=== PATIENT | male | born 1975 | race Caucasian/White ===

== ENCOUNTER 2016-10-18 20:26 | Emergency (ER) | payer OTHER ==
[2016-10-18] MEDS ORDERED: HYDROcod/ACETAM 5/325 MG TABLET PO STA (20:49)
[2016-10-18] MEDS ORDERED: HYDROcod/ACETAM 5/325 MG TABLET ONE (20:57)
[2016-10-18] MEDS ORDERED: HYDROcod/ACET 5/325 Prepack 6 PO STA (21:50)
[2016-10-18] MEDS ORDERED: HYDROcod/ACET 5/325 Prepack 6 PO ONE (22:08)
== END 2016-10-18 22:20 | disposition home or self-care (01) ==
DX: S82.042A Displaced comminuted fracture of left patella, initial encounter for closed fracture (principal); S40.812A Abrasion of left upper arm, initial encounter; W10.9XXA Fall (on) (from) unspecified stairs and steps, initial encounter; Y92.009 Unspecified place in unspecified non-institutional (private) residence as the place of occurrence of the external cause; I10 Essential (primary) hypertension
CPT/HCPCS: 29505; 73564; 99283; 99284; A9270

== ENCOUNTER 2016-10-24 09:51 | Day surgery (SDC) | payer OTHER ==
[~2016-10-24 09:51] MED LIST: ceFAZolin 2 GM/50 ML 50 ML IV ONE
[2016-10-24] MEDS ORDERED: LACTATED RINGERS 1,000 ML IV ONE ×2 (10:04→13:28)
[2016-10-24] MEDS ORDERED: BUPIVACAINE 0.25%-EPI 1:200000 PF 30 ML VIAL SUBQ ONE ×2 (12:26)
[2016-10-24] MEDS ORDERED: TRANEXAMIC ACID 1,000 MG/10 ML VIAL IV ONE (13:15)
[2016-10-24] MEDS ORDERED: LIDOCAINE-MPF 2% 5 ML VIAL IM ONE (13:15)
[2016-10-24] MEDS ORDERED: DEXAMETHASONE 4 MG/ML VIAL IVP ONE (13:15)
[2016-10-24] MEDS ORDERED: KETOROLAC 30 MG/ML VIAL IVP ONE (13:15)
[2016-10-24] MEDS ORDERED: ROPIVACAINE 0.5% PF 20 ML AMPULE SUBQ ONE (13:15)
[2016-10-24] MEDS ORDERED: MIDAZOLAM 2 MG/2 ML VIAL IVP ONE (13:15)
[2016-10-24] MEDS ORDERED: PROPOFOL 200 MG/20 ML VIAL IVP ONE (13:15)
[2016-10-24] MEDS ORDERED: fentaNYL 100 MCG/2 ML VIAL IVP ONE (13:15)
[2016-10-24] MEDS ORDERED: ONDANSETRON 4 MG/2 ML VIAL IVP ONE (13:15)
[2016-10-24] MEDS: HYDROmorphone 1 MG/ML SYRINGE ONE ×4 (14:19→14:35)
[2016-10-24] MEDS ORDERED: HYDROmorphone 1 MG/ML SYRINGE ONE (14:28)
[2016-10-24] MEDS ORDERED: oxyCOD/ACETAMIN 5 MG/325 MG TABLET PO ONE (15:00)
[2016-10-24] MEDS ORDERED: HYDROcod/ACETAM 10 MG/325 MG TABLET ONE (15:07)
[2016-10-24] MEDS ORDERED: DEXAMETHASONE 10 MG/ML VIAL IVP ONE (16:01)
[2016-10-24] MEDS ORDERED: ROPIVACAINE 0.2% PF 20 ML AMPULE SUBQ ONE (16:01)
[2016-10-24] MEDS ORDERED: EPINEPHrine 1 MG/ML AMP IVP ONE (16:01)
[2018-10-24] MEDS ORDERED: ROPIVACAINE 0.5% PF 20 ML AMPULE EP ONE (13:15)
[2018-10-24] MEDS ORDERED: LIDOCAINE-MPF 2% 5 ML VIAL IM ONE (13:15)
[2018-10-24] MEDS ORDERED: MIDAZOLAM 2 MG/2 ML VIAL IVP ONE (13:15)
[2018-10-24] MEDS ORDERED: KETOROLAC 30 MG/ML VIAL IVP ONE (13:15)
[2018-10-24] MEDS ORDERED: PROPOFOL 200 MG/20 ML VIAL IVP ONE (13:15)
[2018-10-24] MEDS ORDERED: ONDANSETRON 4 MG/2 ML VIAL IVP ONE (13:15)
[2018-10-24] MEDS ORDERED: fentaNYL 100 MCG/2 ML VIAL IVP ONE (13:15)
[2018-10-24] MEDS ORDERED: DEXAMETHASONE 4 MG/ML VIAL IVP ONE (13:15)
[2018-10-24] MEDS ORDERED: TRANEXAMIC ACID 1,000 MG/10 ML VIAL IV ONE (13:15)
== END 2016-10-24 09:52 | disposition home or self-care (01) ==
PROC: 0LQR0ZZ Repair Left Knee Tendon, Open Approach (ICD-10-PCS; principal; 2016-10-24 10:55)
DX: S76.112A Strain of left quadriceps muscle, fascia and tendon, initial encounter (principal); W10.9XXA Fall (on) (from) unspecified stairs and steps, initial encounter; Y92.008 Other place in unspecified non-institutional (private) residence as the place of occurrence of the external cause; I10 Essential (primary) hypertension; E11.9 Type 2 diabetes mellitus without complications; F90.9 Attention-deficit hyperactivity disorder, unspecified type; F32.9 Major depressive disorder, single episode, unspecified
CPT/HCPCS: 27380; 80048; 85025; A9270; J0690; J1170; J7120

== ENCOUNTER 2018-11-13 12:09 | Emergency (ER) | payer OTHER ==
--- NOTE | 2018-11-13 13:06 | ED Physician Documentation ---
History of Present Illness - Stated complaint Stated Complaint: LT FT PX - Chief complaint Chief Complaint: Ext Problem - History obtained from History obtained from: Patient - History of Present Illness Timing: How many days ago (5) - Additonal information Additional information: 43-year-old patient reports that his dog stepped on his foot and about 5 days ago he began to have some pain in the left little toe with some redness and swelling. He is got some drainage out of it periodically he is coming today with persistence of pain and redness and swelling. Review of Systems Constitutional: denies: Fever Eyes: denies: Decreased vision Nose: denies: Congestion Respiratory: denies: Cough GI: denies: Vomiting Skin: reports: Lesions. denies: Rash Musculoskeletal: reports: Extremity pain. denies: Neck pain, Back pain PD PAST MEDICAL HISTORY - Past Medical History Cardiovascular: Hypertension Respiratory: None Endocrine/Autoimmune: None GI: None : None HEENT: None Psych: Depression Musculoskeletal: None Derm: None - Past Surgical History Past Surgical History: Yes Ortho: Other - Present Medications Home Medications: Ambulatory Orders Medication Instructions Recorded Confirmed Dextroamphetamine/Amphetamine 20 mg PO BID 10/18/16 11/13/18 [Adderall 30 mg Tablet] Lisinopril [Zestril] 40 mg PO DAILY 10/18/16 11/13/18 Sertraline [Zoloft] 50 mg PO DAILY 10/18/16 11/13/18 amLODIPine [Norvasc] 10 mg PO DAILY 10/18/16 11/13/18 buPROPion [Wellbutrin Sr] 300 mg PO DAILY 10/18/16 11/13/18 Sulfamethoxazole/Trimethoprim 1 each PO BID #14 tablet 11/13/18 [Sulfamethoxazole-Tmp Ds Tablet] metFORMIN [Glucophage] 500 mg PO BIDWM 11/13/18 11/13/18 - Allergies Allergies/Adverse Reactions: Allergies Allergy/AdvReac Type Severity Reaction Status Date / Time No Known Drug Allergies Allergy Verified 11/13/18 12:34 - Social History Does the pt smoke?: No Smoking Status: Never smoker Does the pt drink ETOH?: Yes Does the pt have substance abuse?: No - Immunizations Immunizations are current?: Yes - POLST Patient has POLST: No PD ED PE NORMAL - Vitals Vital signs reviewed: Yes (hypertensive ) - General General: Alert and oriented X 3, No acute distress, Well developed/nourished - HEENT HEENT: Atraumatic, PERRL, EOMI - Neck Neck: Supple, no meningeal sign - Respiratory Respiratory: No respiratory distress - Derm Derm: Normal color, Warm and dry, No rash - Extremities Extremities: No deformity, Other (There is redness swelling and tednerness to the left 5th toe distal phlange with drainage from under the nail. This is cultured. Thers is no lymphangitic streaking. 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, No motor deficit, No sensory deficit Eye Opening: Spontaneous Motor: Obeys Commands Verbal: Oriented GCS Score: 15 - Psych Psych: Normal mood, Normal affect Results - Vitals Vitals: Vital Signs - 24 hr 11/13/18 12:16 Temperature 36.3 C L Heart Rate 79 Respiratory 14 Rate Blood Pressure 166/109 H O2 Saturation 97 Oxygen O2 Source Room air PD MEDICAL DECISION MAKING - ED course Complexity details: reviewed results, re-evaluated patient, considered differential, d/w patient ED course: 43-year-old male with an infected left fifth toe has some drainage which we are able to culture will place him on some Septra and continue the warm soaks. Departure - Departure Disposition: 01 Home, Self Care Clinical Impression: Abscess of toe, left Condition: Stable Instructions: ED Staph Infec Abx Tx Only Follow-Up: Hugh Fuentes MD [Primary Care Provider] - Prescriptions: Sulfamethoxazole/Trimethoprim [Sulfamethoxazole-Tmp Ds Tablet] 1 each PO BID #14 tablet Comments: Use a warm compress or warm soaks 2-3 times per day and encourage any drainage from the area. Expect to have improvement day by day of the redness swelling and pain. If you have worsening of the redness swelling or pain return to the emergency department.
[2018-11-13 13:20] VITALS: BP 158/99
== END 2018-11-13 13:20 | disposition home or self-care (01) ==
LOC: ED 12:09
DX: L03.032 Cellulitis of left toe (principal); W54.8XXA Other contact with dog, initial encounter; I10 Essential (primary) hypertension; Z79.899 Other long term (current) drug therapy
CPT/HCPCS: 87070; 87205; 99283

== ENCOUNTER 2019-01-24 07:43 | Outpatient (CLI) | payer OTHER ==
[2019-01-24 12:56] LABS: CREATININE,URINE 215.4 mg/dL; MICROALBUM/CREATININE RATIO,UR 29.2 ug/mg (<30.0); MICROALBUMIN,URINE 6.3 mg/dL (0-300.0)
[2019-01-24 13:08] LABS: HB2 TOTAL 16.4 g/dL; HEMOGLOBIN A1C 1.19 g/dL; HEMOGLOBIN A1C % 8.8 % (4.6-6.2)
[2019-01-24 14:10] LABS: CALCIUM 8.6 mg/dL (8.5-10.3); CREATININE 0.9 mg/dL (0.6-1.2)
== END 2019-01-24 07:44 | disposition home or self-care (01) ==
LOC: LAB.WCP 07:43
PROVIDERS: ATTEND Internal Medicine
DX: E11.40 Type 2 diabetes mellitus with diabetic neuropathy, unspecified (principal); I10 Essential (primary) hypertension
CPT/HCPCS: 36415; 80048; 82043; 82570; 83036

== ENCOUNTER 2020-03-01 18:22 | Emergency (ER) | payer OTHER ==
--- NOTE | 2020-03-01 18:47 | ED Physician Documentation ---
PD HPI LOWER EXT INJURY - Stated complaint Stated Complaint: RT FT SWELLING - Chief complaint Chief Complaint: Ext Problem - History obtained from History obtained from: Patient - Additional information Additional information: 45-year-old gentleman with relatively well-controlled diabetes, last A1c was 7.1. He has a longstanding callus actually calluses on his feet and one has opened up and developed some redness around it on the right foot. No fevers. No pain with walking. Review of Systems Constitutional: reports: Reviewed and negative Eyes: reports: Reviewed and negative Nose: reports: Reviewed and negative Throat: reports: Reviewed and negative PD PAST MEDICAL HISTORY - Past Medical History Past Medical History: Yes Cardiovascular: Hypertension Respiratory: None Neuro: Peripheral neuropathy Endocrine/Autoimmune: Type 2 diabetes GI: None : Kidney stones HEENT: None Psych: Depression Musculoskeletal: None Derm: None - Past Surgical History Past Surgical History: Yes Ortho: Other - Present Medications Home Medications: Ambulatory Orders Medication Instructions Recorded Confirmed Dextroamphetamine/Amphetamine 20 mg PO BID 10/18/16 11/13/18 [Adderall 30 mg Tablet] Lisinopril [Zestril] 40 mg PO DAILY 10/18/16 11/13/18 Sertraline [Zoloft] 50 mg PO DAILY 10/18/16 11/13/18 amLODIPine [Norvasc] 10 mg PO DAILY 10/18/16 11/13/18 buPROPion [Wellbutrin Sr] 300 mg PO DAILY 10/18/16 11/13/18 Sulfamethoxazole/Trimethoprim 1 each PO BID #14 tablet 11/13/18 [Sulfamethoxazole-Tmp Ds Tablet] metFORMIN [Glucophage] 500 mg PO BIDWM 11/13/18 11/13/18 Amox/Clav 875/125 [Augmentin] 1 each PO Q12H #20 tablet 03/01/20 - Allergies Allergies/Adverse Reactions: Allergies Allergy/AdvReac Type Severity Reaction Status Date / Time No Known Drug Allergies Allergy Verified 11/13/18 12:34 - Social History Does the pt smoke?: No Smoking Status: Never smoker Does the pt drink ETOH?: Yes Does the pt have substance abuse?: No - Immunizations Immunizations are current?: Yes - POLST Patient has POLST: No PD ED PE NORMAL - Vitals Vital signs reviewed: Yes - General General: Alert and oriented X 3, No acute distress - Extremities Extremities: Other (There is a very large broad and deep callus with some mild purulent smell and cellulitis around it under the fifth metatarsal of the right foot. Mild cellulitis up to the midfoot.) - Neuro Neuro: Alert and oriented X 3, Normal speech Results - Vitals Vitals: Vital Signs - 24 hr 03/01/20 03/01/20 18:27 19:35 Temperature 36.6 C 37.1 C Heart Rate 70 71 Respiratory 18 16 Rate Blood Pressure 174/97 H 180/114 H O2 Saturation 98 98 Oxygen O2 Source Room air - Labs Labs: Microbiology 03/01/20 18:45 Wound Culture - Preliminary Foot - Right Laboratory Tests 03/01/20 03/01/20 03/01/20 18:52 18:52 18:52 WBC 5.2 RBC 5.36 Hgb 15.2 Hct 43.5 MCV 81.2 MCH 28.4 MCHC 34.9 RDW 11.9 L Plt Count 180 MPV 10.2 Neut # (Auto) 3.3 Lymph # (Auto) 1.3 L Pratt # (Auto) 0.5 Eos # (Auto) 0.1 Baso # (Auto) 0.0 Absolute Nucleated RBC 0.00 Nucleated RBC % 0.0 ESR 4 Sodium 138 Potassium 3.5 Chloride 102 Carbon Dioxide 26 Anion Gap 10.0 BUN 23 H Creatinine 0.9 Estimated GFR (MDRD) 91 Glucose 185 H Calcium 9.3 Total Bilirubin 0.5 AST 20 ALT 27 Alkaline Phosphatase 86 C-Reactive Protein 1.3 H Total Protein 6.9 Albumin 4.2 Globulin 2.7 Albumin/Globulin Ratio 1.6 Lipase 32 - Rads (name of study) R foot XR Radiology: EMP read contemporaneously (NAD) Procedures - General procedure General procedure: The callus on the bottom of the right foot was sharply debrided and a significant wound skin was removed. Probably will need specialized gun number tools to get down to the base, but got as close as I could and a culture was taken. Departure - Departure Disposition: 01 Home, Self Care Clinical Impression: Diabetic foot infection Condition: Good Instructions: Diabetic Foot Ulcer Dc, ED Foot Care Diabetic Prescriptions: Amox/Clav 875/125 [Augmentin] 1 each PO Q12H #20 tablet Comments: Follow-up with your gun number, next available appointment. Return for new or worsening symptoms. We will culture the wound, have resistant organism is identified we will call you in 48 to 72 hours or so for potential change in antibiotics. Discharge Date/Time: 03/01/20 19:37
[2020-03-01 19:00] LABS: BASOPHILS % (AUTO) 0.4 %; EOSINOPHILS # (AUTO) 0.1 10^3/uL (0.0-0.7); EOSINOPHILS % (AUTO) 2.7 %; HGB - HEMOGLOBIN 15.2 g/dL (14.0-18.0); LYMPHOCYTES # (AUTO) 1.3 10^3/uL (1.5-3.5); LYMPHOCYTES % (AUTO) 24.9 %; MEAN CORPUSCULAR HEMOGLOBIN 28.4 pg (27.0-31.0); MEAN CORPUSCULAR HGB CONC 34.9 g/dL (32.0-36.0); MEAN CORPUSCULAR VOLUME 81.2 fL (80.0-94.0); MEAN PLATELET VOLUME 10.2 fL (7.4-11.4); MONOCYTES # (AUTO) 0.5 10^3/uL (0.0-1.0); MONOCYTES % (AUTO) 8.7 %; NEUTROPHILS # (AUTO) 3.3 10^3/uL (1.5-6.6); NEUTROPHILS % (AUTO) 63.1 %; PLT - PLATELET COUNT 180 10^3/uL (130-450); RED BLOOD COUNT 5.36 10^6/uL (4.70-6.10); RED CELL DISTRIBUTION WIDTH 11.9 % (12.0-15.0); WHITE BLOOD COUNT 5.2 x10^3/uL (4.8-10.8)
--- NOTE | 2020-03-01 19:11 | XRAY Report ---
PROCEDURE: Foot 3 View RT INDICATIONS: foot infection TECHNIQUE: 3 views of the foot were acquired. COMPARISON: None available FINDINGS: Bones: No fractures or dislocations. No suspicious bony lesions. A mild hallux valgus deformity is seen, with associated degenerative change of the first metatarsophalangeal joint. Milder degenerativ e changes are seen elsewhere. There is an accessory ossicle seen, an os tibiale externum. Incidenta l note is made of a bipartite medial sesamoid bone. Incidental note is made of an enthesophyte at th e Achilles insertion. Toe alignment abnormalities can be seen. Soft tissues: Generalized distal soft tissue swelling is seen. No radiopaque foreign bodies are seen . IMPRESSION: Soft tissue swelling is seen, without a radiopaque foreign body or bone involvement seen. If there is strong clinical concern for developing osteomyelitis in this patient with this given hist ory, then please consider a dedicated MRI (without and with contrast) for further evaluation (assumin g that there is no contraindication). Reviewed by: Byron Pinto MD on 03/01/2020 6:10 PM [facility] Approved by: Byron Pinto MD on 03/01/2020 6:10 PM [facility] Station ID: [id number]
[2020-03-01 19:15] LABS: ALBUMIN 4.2 g/dL (3.2-5.5); ALBUMIN/GLOBULIN RATIO 1.6 (1.0-2.2); BILIRUBIN,TOTAL 0.5 mg/dL (0.2-1.0); CALCIUM 9.3 mg/dL (8.5-10.3); CREATININE 0.9 mg/dL (0.6-1.2); CRP - C-REACTIVE PROTEIN 1.3 mg/dL (0-1.0); TOTAL PROTEIN 6.9 g/dL (6.7-8.2)
[2020-03-01] MEDS ORDERED: AMOX/CLAV 875 MG/125 MG TABLET PO STA (19:20)
[2020-03-01 19:36] VITALS: BP 180/114
== END 2020-03-01 19:37 | disposition home or self-care (01) ==
LOC: ED 18:22
DX: E11.69 Type 2 diabetes mellitus with other specified complication (principal); L03.115 Cellulitis of right lower limb; L84 Corns and callosities; E11.42 Type 2 diabetes mellitus with diabetic polyneuropathy; Z79.84 Long term (current) use of oral hypoglycemic drugs; M20.11 Hallux valgus (acquired), right foot; I10 Essential (primary) hypertension
CPT/HCPCS: 11055; 36415; 73630; 80053; 83690; 85025; 85651; 86140; 87070; 87077; 87181; 87205; 99283; A9270

== ENCOUNTER 2021-07-05 13:59 | Emergency (ER) | payer OTHER ==
--- NOTE | 2021-07-05 14:51 | ED Physician Documentation ---
History of Present Illness - Stated complaint Stated Complaint: GLF NECK PX - Chief complaint Chief Complaint: Trauma Hd/Nk - History obtained from History obtained from: Patient - History of Present Illness Timing: Today Pain level max: 5 Pain level now: 5 - Additonal information Additional information: 46-year-old male presents the emergency department after fall today. He states that he did strike his head but no loss of consciousness. Has neck pain. Worse with movement, better with rest. He is diabetic. Denies any numbness or tingling. No loss of bowel or bladder control. Took Motrin prior to arrival. No vomiting. Placed in a c-collar at triage Review of Systems Constitutional: denies: Fever, Chills Respiratory: denies: Cough GI: denies: Nausea, Vomiting, Diarrhea : denies: Frequency Skin: denies: Rash Musculoskeletal: denies: Neck pain, Back pain Neurologic: denies: Headache PD PAST MEDICAL HISTORY - Past Medical History Cardiovascular: Hypertension Respiratory: None Neuro: Peripheral neuropathy Endocrine/Autoimmune: Type 2 diabetes GI: None : Kidney stones HEENT: None Psych: Depression Musculoskeletal: None Derm: None - Past Surgical History Past Surgical History: Yes Ortho: Other - Present Medications Home Medications: Ambulatory Orders Medication Instructions Recorded Confirmed Dextroamphetamine/Amphetamine 20 mg PO BID 10/18/16 11/13/18 [Adderall 30 mg Tablet] Lisinopril [Zestril] 40 mg PO DAILY 10/18/16 11/13/18 Sertraline [Zoloft] 50 mg PO DAILY 10/18/16 11/13/18 amLODIPine [Norvasc] 10 mg PO DAILY 10/18/16 11/13/18 buPROPion [Wellbutrin Sr] 300 mg PO DAILY 10/18/16 11/13/18 Sulfamethoxazole/Trimethoprim 1 each PO BID #14 tablet 11/13/18 [Sulfamethoxazole-Tmp Ds Tablet] metFORMIN [Glucophage] 500 mg PO BIDWM 11/13/18 11/13/18 Amox/Clav 875/125 [Augmentin] 1 each PO Q12H #20 tablet 03/01/20 Meloxicam [Mobic] 15 mg PO DAILY PRN #20 tablet 07/05/21 methocarbamoL [Robaxin] 500 mg PO Q6H PRN #20 tablet 07/05/21 - Allergies Allergies/Adverse Reactions: Allergies Allergy/AdvReac Type Severity Reaction Status Date / Time No Known Drug Allergies Allergy Verified 07/05/21 14:03 - Social History Does the pt smoke?: No Smoking Status: Never smoker Does the pt drink ETOH?: Yes Does the pt have substance abuse?: No - Immunizations Immunizations are current?: Yes - POLST Patient has POLST: No PD ED PE NORMAL - Vitals Vital signs reviewed: Yes - General General: Alert and oriented X 3, No acute distress, Well developed/nourished - HEENT HEENT: Atraumatic, PERRL, Ears normal, Moist mucous membranes - Neck Neck: Supple, no meningeal sign, Other (Tender palpation mid cervical spine. No step-off or deformity.) - Cardiac Cardiac: RRR - Respiratory Respiratory: No respiratory distress, Clear bilaterally - Abdomen Abdomen: Soft, Non tender, Non distended - Back Back: No spinal TTP - Derm Derm: Warm and dry - Extremities Extremities: No deformity, Normal ROM s pain - Neuro Neuro: Alert and oriented X 3, fireman 2-12 intact, No motor deficit, No sensory deficit, Normal speech - Psych Psych: Normal mood, Normal affect Results - Vitals Vitals: Vital Signs - 24 hr 07/05/21 07/05/21 14:03 16:03 Temperature 36.5 C 37.0 C Heart Rate 80 79 Respiratory 16 16 Rate Blood Pressure 160/90 H 138/78 H O2 Saturation 98 96 Oxygen O2 Source Room air - Rads (name of study) CT head Radiology: Final report received, EMP read contemporaneously, See rad report (1. No acute intracranial abnormality. ) ct c-spine Radiology: Final report received, EMP read contemporaneously, See rad report (1. No acute abnormality. ) PD MEDICAL DECISION MAKING - ED course Complexity details: reviewed results, re-evaluated patient, considered differential, d/w patient ED course: No acute findings on head CT or cervical spine CT. C-collar removed after neg ative CT scan. No neurological deficits. Encourage range of motion of the neck. Will prescribe muscle relaxants for home. Patient counseled regarding signs and symptoms for which I believe and urgent re-evaluation would be necessary. Patient with good understanding of and agreement to plan and is comfortable going home at this time This document was made in part using voice recognition software. While efforts are made to proofread this document, sound alike and grammatical errors may occur. Departure - Departure Disposition: 01 Home, Self Care Clinical Impression: Fall Qualifiers: Encounter type: initial encounter Qualified Code(s): W19.XXXA - Unspecified fall, initial encounter Neck strain Qualifiers: Encounter type: initial encounter Qualified Code(s): S16.1XXA - Strain of muscle, fascia and tendon at neck level, initial encounter Closed head injury Qualifiers: Encounter type: initial encounter Qualified Code(s): S09.90XA - Unspecified injury of head, initial encounter Condition: Good Instructions: ED Head Injury Closed, ED Neck Back Pain General Follow-Up: YAN LEMA PA-C [Primary Care Provider] - Within 1 week Prescriptions: Meloxicam [Mobic] 15 mg PO DAILY PRN #20 tablet PRN Reason: pain methocarbamoL [Robaxin] 500 mg PO Q6H PRN #20 tablet PRN Reason: muscle spasm Comments: Your head CT and cervical spine CT did not show any acute abnormalities today. Continue to gently range your neck. Your prescriptions were sent to [facility] in [place]. Do not drive while taking muscle relaxants. I am prescribing a short course of narcotic pain medication for you. These are potentially dangerous and addictive medications that should be used carefully. These medications may constipate you. Take an bvsw-ttl-vqilsie stool softener (docusate) twice daily with plenty of water while taking these medications. If you go 24 hours without a bowel movement, take xnhc-[id number]-epuzsvv miralax, per package instructions. Do not drink or drive while taking these medications. If you received narcotic or sedating medications while in the emergency department, do not drive for 24 hours. Store this medication in a safe, secure place and out of reach of children. It is a violation of federal law to give or sell this medication to another person or to use in a manner other than prescribed. The ED will not refill narcotic prescriptions, including prescriptions lost or stolen. To dispose of unwanted medications: 1. [facility] [address] in [place] has a medication drop box. They accept prescription medications (in pill form) Sunday through Sunday 9:00 a.m. to 5:00 p.m. 2. The [facility] [employer] accepts prescription medications (in pill form only) for disposal year round. Call for more information. 3. Contact the [facility] for the next [facility] sponsored prescription drug collection event. , [phone], or [phone]; Discharge Date/Time: 07/05/21 16:04
--- NOTE | 2021-07-05 15:25 | CT Report ---
PROCEDURE: CERVICAL SPINE WO INDICATIONS: Trauma, fall, neck pain TECHNIQUE: Noncontrast 3 mm thick sections acquired from the skull base to the T4 level. Sagittal and coronal r eformats were then constructed. For radiation dose reduction, the following was used: automated exp osure control, adjustment of mA and/or kV according to patient size. COMPARISON: None FINDINGS: Image quality: Excellent. Bones: No fracture, listhesis, subluxation, or dislocation. No asymmetric widening of the facets or i nterspinous spaces. Vertebral body heights maintained. Degenerative changes and findings of anterior longitudinal ligament ossification. Soft tissues: Prevertebral soft tissues are normal in thickness. No paravertebral hematomas. No ap ical pneumothoraces. IMPRESSION: No CT evidence of acute traumatic cervical spine injury. Reviewed by: Chaka Fernandez MD on 07/05/2021 3:24 PM PST Approved by: hCaka Fernandez MD on 07/05/2021 3:24 PM PST Station ID: [id number]
--- NOTE | 2021-07-05 15:32 | CT Report ---
PROCEDURE: HEAD WO INDICATIONS: fall, head injury TECHNIQUE: Noncontrast 4.5 mm thick angled axial sections acquired from the foramen magnum to the vertex. For r adiation dose reduction, the following was used: automated exposure control, adjustment of mA and/or kV according to patient size. COMPARISON: None. FINDINGS: Image quality: Excellent. CSF spaces: Basal cisterns are patent. No extra-axial fluid collections. Ventricles are normal in size and shape. There is mild cerebral volume loss along the parietal lobes with prominence of the plaza lci. Brain: No intracranial hemorrhage, mass, or mass effect. Hyde-white matter interface appears preser ana. Skull and face: Calvarium and visualized facial bones are intact, without suspicious lesions. Sinuses: Visualized sinuses and mastoids are clear. IMPRESSION: 1. No acute intracranial abnormality. Reviewed by: Kevin Marroquin MD on 07/05/2021 3:31 PM [facility] Approved by: Kevin Marroquin MD on 07/05/2021 3:31 PM PST Station ID: [id number]
[2021-07-05] MEDS: MELOXICAM 7.5 MG TABLET PO STA (15:53)
[2021-07-05] MEDS: methocarbamoL 500 MG TABLET PO STA (15:53)
[2021-07-05 16:04] VITALS: BP 138/78
== END 2021-07-05 16:04 | disposition home or self-care (01) ==
LOC: ED 13:59
DX: S09.90XA Unspecified injury of head, initial encounter (principal); S16.1XXA Strain of muscle, fascia and tendon at neck level, initial encounter; W00.0XXA Fall on same level due to ice and snow, initial encounter; I10 Essential (primary) hypertension; E11.42 Type 2 diabetes mellitus with diabetic polyneuropathy; Z79.84 Long term (current) use of oral hypoglycemic drugs
CPT/HCPCS: 70450; 72125; 99283; 99284; A9270

== ENCOUNTER 2023-06-22 11:35 | Outpatient (CLI) | payer OTHER ==
[2023-06-22 12:42] LABS: ESTIMATED AVERAGE GLUCOSE 183 mg/dL (70-100)
== END 2023-06-22 11:36 | disposition home or self-care (01) ==
LOC: LAB 11:35
PROVIDERS: ATTEND Nurse Practitioner
DX: E11.9 Type 2 diabetes mellitus without complications (principal)
CPT/HCPCS: 36415; 83036

== ENCOUNTER 2023-09-26 09:35 | Outpatient (CLI) | payer OTHER ==
[2023-09-26 09:57] LABS: ESTIMATED AVERAGE GLUCOSE 166 mg/dL (70-100); HEMOGLOBIN A1c% 7.4 % (4.27-6.07)
== END 2023-09-26 09:36 | disposition home or self-care (01) ==
LOC: LAB 09:35
PROVIDERS: ATTEND Nurse Practitioner
DX: E11.9 Type 2 diabetes mellitus without complications (principal)
CPT/HCPCS: 36415; 83036

== ENCOUNTER 2024-01-24 13:26 | Outpatient (CLI) | payer OTHER ==
[2024-01-24 14:16] LABS: CALCIUM 9.6 mg/dL (8.5-10.3); CREATININE 1.1 mg/dL (0.6-1.3); POTASSIUM 4.2 mmol/L (3.5-4.5)
== END 2024-01-24 13:27 | disposition home or self-care (01) ==
LOC: LAB 13:26
PROVIDERS: ATTEND Physician Assistant Medical
DX: I10 Essential (primary) hypertension (principal); Z51.81 Encounter for therapeutic drug level monitoring
CPT/HCPCS: 36415; 80048

== ENCOUNTER 2024-02-12 07:31 | Outpatient (CLI) | payer OTHER ==
--- NOTE | 2024-02-12 08:12 | CARDIAC PROCEDURE NOTE ---
Stress Test Report Service Date: 02/12/24 Service Time: 08:00 Ordering Provider: Ramonita Saunders ARNP Indication for Test: Cardiac risk stratification and assessment of right upper chest tightness. Significant Medical History: Rao is referred for a treadmill stress echocardiogram today, to assess concern for intermittent right upper chest tightness, that has been occurring with movement over the past few months (though less so in recent weeks). The discomfort has not been associated with radiation, GI upset or diaphoresis and he believes it has been due to muscle strain. He is has a sedentary occupation working in IT, though his work for the [employer] [place] [facility] [place] has to walk [place] from the fer[place]. He tries to remain active at home with walking and bicycling, probably achieving near 150 hours/week of walking. He has multiple risk factors for atherosclerotic diseases as outlined below. He also has a prior diagnosis of obstructive sleep apnea approximately 15 years ago that was treated briefly with CPAP, then discontinued due to poor tolerance. He continues with efforts to lose weight, with recent decrease of about 15 pounds and has begun treatment with a weekly injectable medication that is likely a GLP-1 agonist, in hopes of further weight loss. He reports blood pressures typically running around 140/100 in spite of his recent weight loss; recently his regimen was modified with discontinuation of carvedilol and switch to metoprolol, which has not been associated with overall improvement in his blood pressure control. Cardiac Risk Factors: Positive for diabetes (treated for about 15 years, complicated by peripheral neuropathy), hypertension (treated greater than 10 years), hyperlipidemia (treated with pravastatin, with fasting lipid panel in 01/28 that included: TChol 133, LDLc 77, HDLc 26, TG 151), family history of HTN/DM/CVA affecting mother and many of her relatives; negative for tobacco smoking history. Type of Stress Test: ETT with Echocardiography Procedure: -Exercise Treadmill Test- After signing informed consent, the patient underwent echo imaging at rest and then performed treadmill exercise using a Amor protocol. The patient exercised for 9 minutes 43 seconds and achieved a peak heart rate of 162 (94 percent predicted maximum heart rate for age), and an estimated workload of 11.3 METS. The test was terminated due to fatigue/shortness of breath. Resting heart rate: 83 Peak heart rate: 162 Normal response to exercise. Resting BP: 140/102 Peak BP: 237/105 Hypertensive at rest with abnormal hypertensive response of both systolic and diastolic BPs to exercise. Room air oxygen saturation during exercise ranged between 95-97%. Rhythm during exercise: Sinus rhythm throughout, with zero PVCs observed. Symptoms: He denied experiencing any chest tightness/pressure/discomfort with exercise. EKG at rest showed normal sinus rhythm with left atrial abnormality, left anterior fascicular block with probable RV conduction delay, with abnormal precordial R-wave progression including largest R wave in V2 followed by R wave magnitude decrease (likely atypical LAFB pattern though cannot exclude prior anterior infarct). EKG at peak stress showed no ischemia by EKG criteria. In Recovery HR and BP decreased normally (HR was 99, BP 143/97 at 7:00). Echo imaging performed at rest and with stress will be reported separately. IEaston MD, was present throughout this treadmill stress study and supervised it in its entirety. Summary: 1) Exercise tolerance was slightly below average for age and sex as evidenced by SUZETTE of 8%. 2) Abnormal resting EKG. 3) Adequate level of exercise was achieved on this treadmill stress test. 4) Hypertensive at rest with abnormal hypertensive BP response to exercise. 5) No ischemic changes by EKG criteria were seen at peak stress. 6) Echo image interpretation reveals normal left ventricular size, and systolic function, with mild concentric left ventricular hypertrophy, with appropriate hyperdynamic augmentation of all segments with exercise, indicating no evidence of prior infarct or inducible ischemia. No significant valvular abnormality or elevation of estimated pulmonary artery systolic pressure seen on screening study. See separate report for more details. Conclusions and Recommendations: 1) Overall this is a reassuring treadmill stress echocardiogram study, with exercise capacity just a bit below average for age, but no symptom, EKG or echocardiographic evidence of inducible ischemia. 2) The patient is currently on 4 anti-hypertensive medications (and I do not have access to what else has been tried in the past) with inadequate BP control. Given assessment that carvedilol was ineffective it is not surprising that metoprolol has not been better and it likely should be discontinued. Additional options that could be considered include: increase lisinopril to 40 mg twice daily versus switch to the ARB irbesartan at 150 mg bid; and/or addition, then stepwise uptitration, of minoxidil (ranging from 2.5 mg qD to as much as 10 mg bid, guided by BP response). 3) Given the ongoing ASCVD risk posed by untreated ORIN this problem should also be re-evaluated with repeat sleep study, given report of continued witnessed apneas. With serial technologic improvement in CPAP equipment, another trial of this therapy may be more successful, assuming evidence of ORIN persists; alternatively an oral appliance might be effective. A qualified oral medicine provider of these devices for appropriate patients is Dr Bear Rubio, in [place].
== END 2024-02-12 07:32 | disposition home or self-care (01) ==
LOC: DI 07:31
PROVIDERS: ATTEND Nurse Practitioner
DX: I10 Essential (primary) hypertension (principal); R07.89 Other chest pain; G47.33 Obstructive sleep apnea (adult) (pediatric); E11.42 Type 2 diabetes mellitus with diabetic polyneuropathy; E78.5 Hyperlipidemia, unspecified
CPT/HCPCS: 93350